=== PATIENT | female | born 1960 | race Caucasian/White ===

== ENCOUNTER 2024-07-05 16:17 | Emergency (ER) | payer SELFPAY ==
[2024-07-05 17:49] VITALS: BP 108/72; PULSE 99; RESP 17; TEMP 36.8; O2SAT 98
--- NOTE | 2024-07-05 21:36 | PC.NURSE ---
patient states they think they had an anxiety attack and they feel better now. they would like to leave the ED and was educated about any symptoms that warrant a return to the ED. patient leaves with steady gait, skin tone normal, no resp. distress, and denies any chest pain/sob.
== END 2024-07-05 17:49 | disposition left against medical advice (07) ==
DX: R06.02 Shortness of breath (principal)
CPT/HCPCS: 99199

== ENCOUNTER 2024-07-06 13:28 | Emergency (ER) | payer SELFPAY ==
[2024-07-06 13:55] VITALS: PULSE 88; RESP 16; TEMP 36.9; O2SAT 98
[2024-07-06 14:19] VITALS: BP 126/60
== END 2024-07-06 15:21 | disposition home or self-care (01) ==
PROVIDERS: Emergency Provider Nurse Practitioner
DX: F41.9 Anxiety disorder, unspecified (principal); Z72.0 Tobacco use
CPT/HCPCS: 99213; G0463

== ENCOUNTER 2024-07-15 18:17 | Emergency (ER) | payer SELFPAY ==
--- NOTE | ~2024-07-15 | XR_ITS ---
EXAMINATION: XR ankle LT min 3V DATE: 07/15/2024 19:01 INDICATION: Left ankle injury. Fall. TECHNIQUE: 4 views of left ankle were obtained. COMPARISON: None. FINDINGS: Alignment is normal. No fracture. There is mild midfoot osteoarthritis. There is mild ankle joint osteoarthritis. There are enthesophytes at the posterior and plantar aspects of calcaneal tube rosity. Ankle soft tissue swelling is noted. IMPRESSION: 1. No fracture. 2. Mild polyarticular osteoarthritis. Reviewed, dictated and finalized at location A.
--- NOTE | 2024-07-15 18:23 | ED.LOWEXIN ---
HPI - Extremity Injury (Lower) General Chief Complaint: Extremity Problem,Nontraumatic Stated Complaint: left leg injury Time Seen by Provider: 07/15/24 18:55 Source: patient and RN notes reviewed Mode of arrival: ambulatory Limitations: no limitations History of Present Illness HPI Narrative: 63-year-old female presents with concern for left leg injury. Reports yesterday afternoon she slipped and hyperextended her left lower extremity. Reports pain starts at the ankle extends up to the martinez, thigh and into the hip. She denies any tenderness it is in the thigh, hip. Reports tenderness at the anterior ankle. Reports swelling at the ankle. Reports swelling worsened throughout the day. She reports some pain at rest, worsening pain with weight-bearing. MD complaint: leg injury Related Data Home Medications Medication Instructions Recorded Confirmed hydroxyzine pamoate 25 mg capsule 25 - 50 mg PO 4-6XD PRN Anxiety 07/15/24 07/15/24 Allergies Allergy/AdvReac Type Severity Reaction Status Date / Time No Known Allergies Allergy Unknown Verified 07/06/24 14:07 Review of Systems Review of Systems: CONSTITUTIONAL: Denies malaise, chills, sweats, or fever. SKIN: Denies rash or itching, open skin, laceration, abrasion, redness, warmth MUSCULOSKELETAL: Reports left lower extremity pain and swelling NEUROLOGIC: Denies numbness, weakness All systems reviewed & are unremarkable except as noted in HPI and below PMFSH Comments At time of signature, agree with nursing past medical, surgical, social and family history. There is no relevant family history pertinent to the presenting complaint Exam Narrative: GENERAL: Well-appearing, well-nourished, and in no acute distress. HEAD: Normocephalic, atraumatic. EYES: PERRLA, conjunctivae clear NECK: Supple. CHEST: Speaks in full sentences. No respiratory distress. HEART: Regular rate and rhythm. Normal and equal peripheral pulses. EXTREMITIES: Left lower extremity has normal strength and sensation, limited range of motion likely due to pain. Left ankle edema, no erythema or ecchymosis. Normal sensation with sensitivity to light touch and pain. Anterior ankle tenderness. No open wounds, no skin tenting, no devitalized tissue or atrophy, no trophic changes, no obvious deformity, alignment normal, nearby joints and structures intact. Distal pulses palpable and equal bilaterally, skin warm, dry, pink. Capillary refill less than 3 seconds. SKIN: Warm, dry, no rash. NEURO: Alert and oriented x3. PSYCH: Normal mood and affect Course Course Emergency Course: Patient is aware of diagnosis, understands and agrees to treatment plan. Anticipatory guidance given. Patient agrees to follow-up as directed and is aware of reasons to seek care at the emergency department. Portions of this record may have been created with voice recognition software Level of Care: Express Care Visit Vital Signs Vital signs: Reviewed. MDM - Extremity Injury (Lower) MDM Narrative Medical decision making narrative: Patients injury and pain is consistent with musculoskeletal etiology. No signs of neurological or vascular compromise on exam. Compartments and tissues are soft without signs of compartment syndrome. Pain is felt appropriate for further evaluation on an outpatient basis. Critical Care Time Critical Care Time Critical Care Time: No Discharge Plan Discharge Clinical Impression: Leg sprain Patient Disposition: Home, Self-Care Condition: Stable Instructions: Musculoskeletal Pain (ED) Additional Instructions: Your x-ray looks normal Avoid activities that cause pain until the pain subsides. Ice to the area 20-30 minutes 4-6 times a day Elevate above heart Take muscle relaxer as needed. It may make you tired, so don't work or drive while you are taking it. Tylenol for lesser pain Ibuprofen regularly for the next 2-3 days for the inflammation Follow up with your primary car
[2024-07-15 18:28] VITALS: BP 137/70; PULSE 114; RESP 16; TEMP 37.5; O2SAT 100
== END 2024-07-15 19:19 | disposition home or self-care (01) ==
PROVIDERS: Emergency Provider Nurse Practitioner
DX: S89.82XA Other specified injuries of left lower leg, initial encounter (principal); X50.9XXA Other and unspecified overexertion or strenuous movements or postures, initial encounter; F41.0 Panic disorder [episodic paroxysmal anxiety]
CPT/HCPCS: 73610; 99213; G0463

== ENCOUNTER 2024-07-26 17:00 | Emergency (ER) | payer SELFPAY ==
--- NOTE | ~2024-07-26 | XR_ITS ---
XR knee LT min 4V Ordering provider: Debora Land MD History: . trauma on Labor day . Comparison: None. FINDINGS: BONES: No acute fracture or dislocation. JOINT SPACES: Severe narrowing of the medial compartment. Narrowing of the patellofemoral joint. SOFT TISSUES: Normal. IMPRESSION: No acute osseous abnormality left knee. Severe osteoarthritic changes of the knee and patellofemoral joint. Reviewed, dictated and finalized at location A.
[2024-07-26 17:02] VITALS: BP 121/64; PULSE 105; RESP 18; TEMP 36.5; O2SAT 99
[2024-07-26 17:17] VITALS: BP 116/72; PULSE 100; RESP 20; O2SAT 99
--- NOTE | 2024-07-26 17:29 | ED.EXTPRO ---
HPI - Extremity Problem General Chief complaint: Extremity Problem,Nontraumatic Stated complaint: left leg is swollen Time Seen by Provider: 07/26/24 17:18 Source: patient and family (son, Farhat) Mode of arrival: ambulatory Limitations: no limitations History of Present Illness HPI Narrative: Patient (ricardo Recinos ) presents with concern for left lower extremity swelling and pain. On she slipped and fell and started having pain along the back of her calf and into her thigh. She was seen at an urgent care the next day, on Sunday, and told she had sprained her ankle after xray performed. She continues to have pain and swelling. she also has paresthesias in her foot intermittently limited this elevated. No history of DVT or PE. No recent travel. Not on anticoagulation. No history of CHF. Does not currently have a primary care physician since she does not have insurance. 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 HEAD: Normocephalic, atraumatic. EYES: Non injected, non icteric ENT: Nares clear, no rhinorrhea or epistaxis. NECK: Supple. CHEST: Speaking in full sentences. No respiratory distress. HEART: Regular rate and rhythm. . ABDOMEN: Soft, nondistended. EXTREMITIES: Normal range of motion. Left lower extremity edema, 1+ tibial but very swollen throughout leg extending into thigh. SKIN: Warm, dry, no rash. NEURO: No focal deficits. Alert and oriented x3. PSYCH: Normal mood and affect. Course Vital Signs Vital signs: Vital Signs Temperature 97.7 F 07/26/24 17:02 Pulse Rate 105 H 07/26/24 17:02 Respiratory Rate 18 07/26/24 17:02 Blood Pressure 121/64 07/26/24 17:02 Pulse Oximetry 99 07/26/24 17:02 Oxygen Delivery Room Air 07/26/24 17:02 Temperature 97.7 F 07/26/24 17:02 Pulse Rate 80 07/26/24 19:20 Respiratory Rate 17 07/26/24 19:20 Blood Pressure 116/81 07/26/24 19:20 Pulse Oximetry 97 07/26/24 19:20 Oxygen Delivery Room Air 07/26/24 17:02 MDM - Extremity (Nontraumatic) MDM Narrative Medical decision making narrative: Patient presents with left lower extremity pain and swelling. She slipped on Day had pain in the back of her calf and extending into her thigh. She was seen in urgent care on Sunday and an x-ray was performed of her left ankle and she was told that she an ankle sprain. She has continued to have pain and swelling. In the emergency department she is afebrile with vital signs notable for mild tachycardia. BNP is slightly elevated however not to the degree 1 would suspect for acute heart failure given patient age based on the reference range of the lab. Patient does have an elevated D-dimer. I am concerned about DVT. US not available this evening so patient given 1 time dose of Xarelto and discharged with ultrasound Rx to be performed tomorrow morning, scheduled for 7am Verifies understanding of the plan and is in agreement. provided the name of primary care physician given she does not currently have 1 due to lack of insurance. Differential Diagnosis Differential diagnosis: Likely superficial thrombophlebitis, lower extremity edema and deep vein thrombosis of lower extremity Medical Records Attestation: I reviewed the patient's medical records. Medical records narrative: Ankle Xray from 07/15/24 showed: IMPRESSION: 1. No fracture.
[2024-07-26] MEDS: HYDROcodone/acetaminophen (*CRX) 5-325 MG TABLET 1 TAB PO (17:41)
[2024-07-26 17:58] LABS: Basophils Absolute Auto 0.1 K/mm3 (0.0-0.1); Basophils Percent Auto 0.6 % (0.2-1.2); Eosinophils Absolute Auto 0.1 K/mm3 (0-0.3); Eosinophils Percent Auto 0.6 % (0-4.4); Hematocrit 39.5 % (37.0-47.0); Hemoglobin 12.8 g/dL (12.0-15.0); Immature Granulocyte Absolute 0.03 K/mm3 (0.00-0.031); Immature Granulocyte Percent A 0.3 % (0-0.5); Lymphocytes Absolute Auto 2.07 K/mm3 (0.9-3.2); Lymphocytes Percent Auto 21.4 % (18.3-44.2); Mean Corpuscular HGB Conc 32.4 g/dl (32-36); Mean Corpuscular Hemoglobin 29.3 pg (26-34); Mean Corpuscular Volume 90.4 fl (80-100); Mean Platelet Volume 8.7 fl (7.4-10.4); Monocytes Absolute Auto 0.6 K/mm3 (0.1-0.6); Monocytes Percent Auto 5.7 % (2.6-8.5); Neutrophils Absolute Auto 6.9 K/mm3 (1.3-6.7); Neutrophils Percent Auto 71.4 % (45.5-73.1); Platelet Count Result 302 k/mm3 (150-375); Red Blood Count 4.37 M/mm3 (4.2-5.4); Red Cell Distribution Width 13.5 % (11.5-14.5); White Blood Count 9.7 K/mm3 (4.5-10.0)
[2024-07-26 18:10] LABS: Anion Gap 8 mmol/L (4-12); Blood Urea Nitrogen 9 mg/dL (7-17); Calcium 8.9 mg/dL (8.4-10.2); Carbon Dioxide 25 mmol/L (22-30); Chloride 104 mmol/L (98-107); Estimated Glomerular Filt Rate > 60; Glucose 109 mg/dL (65-110); Potassium 3.8 mmol/L (3.4-5.0); Sodium 137 mmol/L (137-145)
[2024-07-26 18:16] LABS: Prothrombin Time 13.8 Seconds (11.1-14.7)
[2024-07-26 18:17] LABS: Partial Thromboplastin Time 27.5 Seconds (22.3-36.8)
[2024-07-26 18:19] LABS: NT Pro B Type Natriuretic Pept 443 pg/mL (19.9-100)
[2024-07-26 18:28] LABS: D Dimer 8.48 ug/mL (<0.48)
[2024-07-26 18:34] LABS: Creatine Kinase 43 U/L (30-135); Magnesium 2.2 mg/dL (1.6-2.3)
[2024-07-26] MEDS: RIVAROXABAN 15 MG TABLET PO (18:43)
[2024-07-26 19:20] VITALS: BP 116/81; PULSE 80; RESP 17; O2SAT 97
== END 2024-07-26 19:21 | disposition home or self-care (01) ==
LOC: ANHED 18:43
PROVIDERS: Emergency Provider Student in an Organized Health Care Education/Training Program
DX: M17.12 Unilateral primary osteoarthritis, left knee (principal); W01.0XXA Fall on same level from slipping, tripping and stumbling without subsequent striking against object, initial encounter
CPT/HCPCS: 36415; 73564; 80048; 82550; 83735; 83880; 85025; 85380; 85610; 85730; 99283; A9270

== ENCOUNTER 2024-07-27 07:11 | Outpatient (CLI) | payer SELFPAY ==
--- NOTE | ~2024-07-27 | US_ITS ---
EXAMINATION: US venous doppler [facility] DATE: 07/27/2024 07:33 INDICATION: Left lower limb pain and swelling TECHNIQUE: Grayscale ultrasound images without and with compression and Doppler ultrasound images of the left lower extremity veins were obtained. COMPARISON: None. FINDINGS: There is extensive noncompressible deep venous sclerosis in the visualized portions of left common fe moral vein, profunda (deep) femoral vein, femoral vein, popliteal vein, peroneal veins, posterior tib ial veins, gastrocnemius vein and greater saphenous vein outflow. IMPRESSION: 1. Extensive deep venous thrombosis throughout the left lower limb. Dr. Gunn discussed these findings with Dr. Agee at 7:50 AM. Reviewed, dictated and finalized at location A.
== END 2024-07-27 07:12 | disposition home or self-care (01) ==
LOC: ANHIMG 07:13
PROVIDERS: Visit Provider Student in an Organized Health Care Education/Training Program
DX: I82.402 Acute embolism and thrombosis of unspecified deep veins of left lower extremity (principal); M79.605 Pain in left leg
CPT/HCPCS: 93971

== ENCOUNTER 2024-07-27 07:55 | Emergency (ER) | payer SELFPAY ==
[2024-07-27] VITALS (14 sets, daily range): BP systolic 119–147; BP diastolic 60–83; PULSE 80–97; RESP 14–23; TEMP 36.6–36.8; O2SAT 93–100
[2024-07-27 08:54] LABS: Basophils Absolute Auto 0.1 K/mm3 (0.0-0.1); Basophils Percent Auto 0.7 % (0.2-1.2); Eosinophils Absolute Auto 0.1 K/mm3 (0-0.3); Eosinophils Percent Auto 1.2 % (0-4.4); Hematocrit 38.5 % (37.0-47.0); Hemoglobin 12.4 g/dL (12.0-15.0); Immature Granulocyte Absolute 0.05 K/mm3 (0.00-0.031); Immature Granulocyte Percent A 0.7 % (0-0.5); Lymphocytes Absolute Auto 2.08 K/mm3 (0.9-3.2); Lymphocytes Percent Auto 28.1 % (18.3-44.2); Mean Corpuscular HGB Conc 32.2 g/dl (32-36); Mean Corpuscular Hemoglobin 29.7 pg (26-34); Mean Corpuscular Volume 92.3 fl (80-100); Mean Platelet Volume 8.8 fl (7.4-10.4); Monocytes Absolute Auto 0.5 K/mm3 (0.1-0.6); Monocytes Percent Auto 6.9 % (2.6-8.5); Neutrophils Absolute Auto 4.6 K/mm3 (1.3-6.7); Neutrophils Percent Auto 62.4 % (45.5-73.1); Platelet Count Result 292 k/mm3 (150-375); Red Blood Count 4.17 M/mm3 (4.2-5.4); Red Cell Distribution Width 13.9 % (11.5-14.5); White Blood Count 7.4 K/mm3 (4.5-10.0)
[2024-07-27 09:05] LABS: Alanine Aminotransferase 15 U/L (6-35); Albumin Level 3.8 g/dL (3.5-5.1); Alkaline Phosphatase 104 U/L (38-126); Anion Gap 7 mmol/L (4-12); Aspartate Amino Transferase 22 U/L (14-36); Bilirubin,Total 0.5 mg/dL (0.2-1.3); Blood Urea Nitrogen 10 mg/dL (7-17); Calcium 8.7 mg/dL (8.4-10.2); Carbon Dioxide 29 mmol/L (22-30); Chloride 102 mmol/L (98-107); Estimated CRCL calculation 69 ml/min; Estimated Glomerular Filt Rate > 60; Glucose 109 mg/dL (65-110); Potassium 3.7 mmol/L (3.4-5.0); Sodium 138 mmol/L (137-145)
[2024-07-27 09:12] LABS: INR 1.2; Prothrombin Time 16.2 Seconds (11.1-14.7)
[2024-07-27 09:13] LABS: Partial Thromboplastin Time 33.4 Seconds (22.3-36.8)
--- NOTE | 2024-07-27 09:44 | ED.GENADULT ---
HPI - General Adult General Chief complaint: Recheck/Abnormal Lab/Rx Stated complaint: positive US Time Seen by Provider: 07/27/24 08:10 History of Present Illness HPI narrative: Patient is a 63-year-old female who presents ER after having an abnormal outpatient ultrasound performed. Patient suffered injury around and was seen in urgent care on 08/11/2024. Patient slipped in her left leg extended out in front of her. She felt like she strained the muscles of her thigh and calf. Imaging was negative and since then she has had progressive aches and progressive swelling of the thigh lower extremity. She has no chest pain or shortness of breath. No fevers or chills or sweats. No discoloration of her skin. Her D-dimer was elevated last night so she received an oral dose of Xarelto 15 mg. Ultrasound this morning showed extensive DVT patient was sent to the ER for evaluation. Related Data Home Medications Medication Instructions Recorded Confirmed hydroxyzine pamoate 25 mg capsule 25 - 50 mg PO 4-6XD PRN Anxiety 07/15/24 07/15/24 Allergies Allergy/AdvReac Type Severity Reaction Status Date / Time No Known Allergies Allergy Unknown Verified 07/27/24 08:20 Review of Systems Review of Systems: All systems reviewed & are unremarkable except as noted in HPI and below Constitutional: Constitutional: Reports no additional constitutional complaints Cardiovascular: Cardiovascular: Reports no additional cardiovascular complaints Respiratory: Respiratory: Reports no additional respiratory complaints Gastrointestinal: Gastrointestinal: Reports no additional gastrointestinal complaints Musculoskeletal: Musculoskeletal: Denies back pain and Denies myalgias Comments: Left lower extremity swelling Integumentary/Breasts: Skin/Breast: Reports system reviewed and no additional complaints, except as docu PMFSH Past Medical History Medical History (Updated 07/27/24 @ 10:13 by Crow Agee MD) Multigravida Surgical History Surgical History (Updated 07/27/24 @ 10:13 by Crow Agee MD) History of cholecystectomy Social History Social History 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 HEAD: Normocephalic, atraumatic. ENT: Mucous membranes moist. NECK: Supple. CHEST: Clear to auscultation. No respiratory distress. HEART: Regular rate and rhythm. Normal peripheral pulses. ABDOMEN: Soft, nontender, nondistended. EXTREMITIES: Edema of the left lower extremity from proximal thigh down foot compared to the right side. Normal strength bilateral lower extremities. SKIN: Warm, dry, no rash. Mild redness to the proximal thigh medially. NEURO: Alert and oriented x3. PSYCH: Normal mood and affect. Course Course Emergency Course: 1000: Discussed with Dr. Damian with vascular surgery at [facility]. Start heparin, would like the patient transferred. Awaiting hospitalist. 1027: Accepted by Dr. Angelo Vital Signs Vital signs: Vital Signs Temperature 97.8 F 07/27/24 08:05 Pulse Rate 97 07/27/24 08:05 Respiratory Rate 17 07/27/24 08:05 Blood Pressure 147/83 H 07/27/24 08:05 Pulse Oximetry 100 07/27/24 08:05 Oxygen Delivery Room Air 07/27/24 08:05 Temperature 98.2 F 07/27/24 13:35 Pulse Rate 96 07/27/24 13:35 Respiratory Rate 20 07/27/24 13:35 Blood Pressure 119/60 07/27/24 13:35 Pulse Oximetry 97 07/27/24 13:35 Oxygen Delivery Room Air 07/27/24 08:05 Medical Decision Making Vital Signs Vital Signs: Vital Signs Temperature 97.8 F 07/27/24 08:05 Pulse Rate 97 07/27/24 08:05 Respiratory Rate 17 07/27/24 08:05 Blood Pressure 147/83 H 07/27/24 08:05 Pulse Oximetry 100 07/27/24 08:05 Oxygen Delivery Room Air 07/27/24 08:05 Temperature 98.2 F 07/27/24
[2024-07-27] MEDS: HEPARIN SOD/D5W 100 UNITS/ML 25,000 UNITS/250 ML BAG 12 UNITS IV CONT (10:42)
[2024-07-27] MEDS: HEPARIN SODIUM 5,000 UNITS/ML VIAL 5500 UNITS IV PUSH (10:43)
--- NOTE | 2024-07-27 11:19 | PC.NURSE ---
Patient given a bed at [facility] direct admit 245-[address] under Dr Trejo. Nurse to nurse report number is [phone]
--- NOTE | 2024-07-27 11:43 | PC.NURSE ---
report given to Ana at [facility] @ [id number]. ALS transfer requested
== END 2024-07-27 12:00 | disposition short-term general hospital (02) ==
PROVIDERS: Emergency Provider Emergency Medicine
DX: I82.402 Acute embolism and thrombosis of unspecified deep veins of left lower extremity (principal)
CPT/HCPCS: 36415; 80053; 85025; 85610; 85730; 96365; 99285; J1644